=== PATIENT | female | born 1945 | race Caucasian/White ===

== ENCOUNTER 2024-01-11 08:48 | Day surgery (SDC) | payer MEDICARE ==
[2024-01-11] MEDS ORDERED: Sodium Chloride 0.9(Preservative Free) 10 ML IJ ONE (08:49)
[2024-01-11] MEDS ORDERED: Decadron 4 MG INJ IV ONE (08:49)
[2024-01-11] MEDS ORDERED: DIPRIVAN 200 MG/20 ML IV ONE (11:26)
[2024-01-11] MEDS ORDERED: Xylocaine-Mpf 2% 5 Ml Vial ONE (11:27)
--- NOTE | 2024-01-11 18:56 | XRAY ---
Indication: Left L3-L5 transforaminal FLORES. Intraoperative fluoroscopy provided for 24 seconds. 6 digital spot image submitted for interpretation demonstrates posterior needle tips projecting over the expected left L3 and L4 nerve roots. Small amount of contrast injected for needle tip placement. Correlate with intraoperative findings/report. Incidental lower lumbar spinous process fusion hardware.
--- NOTE | 2024-01-11 19:23 | XRAY ---
24 seconds of fluoroscopy was used in surgery for a left L3-L5 transforaminal FLORES.
== END 2024-01-11 11:55 | disposition home or self-care (01) ==
LOC: SDC-PAIN 08:48
PROVIDERS: ATTEND Psychiatry & Neurology Pain Medicine
DX: M54.16 Radiculopathy, lumbar region (principal); E11.9 Type 2 diabetes mellitus without complications
CPT/HCPCS: 64483; 64484; 72100; 77003; 82947; J1100; J2704; Q9966

== ENCOUNTER 2024-11-21 14:14 | Day surgery (SDC) | payer MEDICARE, SELFPAY ==
[2024-11-21] MEDS ORDERED: Sodium Chloride 0.9(Preservative Free) 10 ML IJ ONE (14:15)
[2024-11-21] MEDS ORDERED: propofoL IV ONE (17:19)
[2024-11-21] MEDS ORDERED: Lactated Ringers 1,000 ML IV ONE (18:13)
--- NOTE | 2024-11-21 20:33 | XRAY ---
Indication: Left L3-L5 transforaminal FLORES. Intraoperative fluoroscopy provided for 38 seconds. 7 digital spot image submitted for interpretation demonstrates posterior needle tips projecting over expected left L3 and L4 nerve roots. Small amount of contrast injected for needle tip placement. Correlate with intraoperative findings/report. Incidental lower lumbar spinous process fusion hardware.
--- NOTE | 2024-11-21 20:37 | XRAY ---
38 seconds of fluoroscopy were used in surgery for a left L3-L5 transforaminal FLORES.
== END 2024-11-21 17:55 | disposition home or self-care (01) ==
LOC: SDC-PAIN 14:14
PROVIDERS: ATTEND Psychiatry & Neurology Pain Medicine
DX: M54.16 Radiculopathy, lumbar region (principal); E11.9 Type 2 diabetes mellitus without complications

== ENCOUNTER 2024-12-26 13:57 | Day surgery (SDC) | payer MEDICARE, SELFPAY ==
[2024-12-26] MEDS ORDERED: LIDOCAINE HCL 1% 50 MG/5 ML VL IJ ONE (13:58)
[2024-12-26] MEDS ORDERED: methylPREDNISolone acetate IM ONE (13:58)
[2024-12-26] MEDS ORDERED: BUPIVACAINE 0.5% VIAL IJ ONE (13:58)
--- NOTE | 2024-12-26 18:57 | XRAY ---
Indication: Left shoulder, subacromial bursa, and biceps tendon injection. Intraoperative fluoroscopy provided for 18 seconds. 2 digital spot image submitted for interpretation demonstrates needle tip projecting over left glenohumeral joint superiorly. 2nd needle tip subacromial. Small amount of contrast injected for both needle tip placement. Correlate with intraoperative findings/report.
--- NOTE | 2024-12-27 12:54 | XRAY ---
18 seconds of fluoroscopy was used in surgery for a left intra-articular shoulder, subacromial bursa, and bicep tendon injections.
== END 2024-12-26 17:29 | disposition home or self-care (01) ==
LOC: SDC-PAIN 13:57
PROVIDERS: ATTEND Psychiatry & Neurology Pain Medicine
DX: M19.012 Primary osteoarthritis, left shoulder (principal); E11.9 Type 2 diabetes mellitus without complications; M75.52 Bursitis of left shoulder